=== PATIENT | male | born 2005 | race Caucasian/White ===

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

== ENCOUNTER 2024-05-04 16:50 | Emergency (ER) | payer MEDICAID ==
[~2024-05-04] VITALS: Ht 172.7 cm; Wt 53.8 kg
[2024-05-04 17:04] VITALS: BP 124/75; PULSE 101; O2SAT 97
[2024-05-04] MEDS ORDERED: AMOX500C2 PO (19:14)
[2024-05-04 19:19] VITALS: TEMP 97.8
[2024-05-04 19:24] VITALS: RESP 14
[2024-05-04] MEDS: ketorolac trometh 15mg/ml vial 15 MG/ML ML IM ONE (19:24)
[2024-05-04] MEDS: amoxicillin 250mg capsule PO ONE (19:26)
== END 2024-05-04 19:26 | disposition home or self-care (01) ==
LOC: ER 16:50
DX: K08.89 Other specified disorders of teeth and supporting structures (principal); F12.90 Cannabis use, unspecified, uncomplicated; Z98.890 Other specified postprocedural states
CPT/HCPCS: 96372; 99283; J1885